=== PATIENT | male | born 1990 | race Caucasian/White ===

== ENCOUNTER 2022-10-27 04:34 | Emergency (ER) | payer BC ==
[~2022-10-27] VITALS: Ht 185.4 cm; Wt 95.3 kg
[2022-10-27 04:40] VITALS: BP_SYST 123
[2022-10-27 05:30] VITALS: BP_SYST 123
[2022-10-27 05:45] LABS: BENZODIAZEPINE, URINE POSITIVE (NEG <=150); CANNABINOID, URINE POSITIVE (NEG <=50)
[2022-10-27 05:46] LABS: BARBITURATE, URINE NEGATIVE (NEG <=200); COCAINE, URINE NEGATIVE (NEG <=150); METHAMPHETAMINES SCREEN,URINE NEGATIVE (NEG <=500); OPIATE, URINE NEGATIVE (NEG <=100); PHENCYCLIDINE SCREEN,URINE NEGATIVE (NEG <=25); UR TRICYCLIC ANTIDEPRESSANTS NEGATIVE (NEG <=300); URINE AMPHETAMINE NEGATIVE (NEG <=500); URINE METHADONE NEGATIVE (NEG <=200); URINE OXYCODONE SCREEN NEGATIVE (NEG <=100); URINE PROPOXYPHENE SCREEN NEGATIVE (NEG <=300)
[2022-10-27 05:58] LABS: CALCIUM 8.7 mg/dL (8.4-11.0); CREATININE 1.03 mg/dL (0.55-1.30)
[2022-10-27 06:03] LABS: ALBUMIN 3.7 g/dL (3.4-4.8); TOTAL BILIRUBIN 0.4 mg/dL (0.0-1.0)
== END 2022-10-27 06:07 | disposition home or self-care (01) ==
LOC: SED 04:34
DX: F10.10 Alcohol abuse, uncomplicated (principal); R10.11 Right upper quadrant pain; Y90.6 Blood alcohol level of 120-199 mg/100 ml
CPT/HCPCS: 36415; 80053; 80307; 99283